=== PATIENT | female | born 1965 | race Caucasian/White ===

== ENCOUNTER 2021-03-06 06:17 | Emergency (ER) | payer OTHER ==
[2021-03-06 06:55] VITALS: BP 140/97; PULSE 64; BMI 24.2
[2021-03-06] MEDS ORDERED: BACITRACIN 15 GM TUBE TOPICAL OINTMENT ONE (08:11)
== END 2021-03-06 09:01 | disposition home or self-care (01) ==
LOC: JERFT 06:17 → JER 06:17 → JERFT 09:01
DX: S61.254A Open bite of right ring finger without damage to nail, initial encounter (principal); W53.11XA Bitten by rat, initial encounter; Y92.9 Unspecified place or not applicable
CPT/HCPCS: 99283-25